=== PATIENT | female | born 1970 | race Two or more races ===

== ENCOUNTER 2018-08-31 06:31 | Day surgery (SDC) | payer OTHER ==
[2018-08-31] VITALS (12 sets, daily range): BP systolic 109–134; BP diastolic 63–75; PULSE 58–72; RESP 15–24; Ht 167.6 cm; Wt 69.1 kg
[~2018-08-31] VITALS: Ht 167.6 cm; Wt 69.1 kg
[2018-08-31] MEDS ORDERED: SEVOFLURANE 15 MIN ONE (07:00)
[2018-08-31] MEDS ORDERED: SOD CHLORIDE 0.9% 1,000 ML IV SCH (07:00)
[2018-08-31] MEDS ORDERED: CEFAZOLIN 1 GM INJ ONE (07:00)
[2018-08-31] MEDS ORDERED: CEFAZOLIN 2 GM/50 ML (PMX) 50 ML IVPB ONE (07:00)
[2018-08-31] MEDS ORDERED: LEVO88TA3 PO (09:38)
[2018-08-31] MEDS ORDERED: BUPIVACAINE 0.25% (MPF) 30 ML INJ ONE (11:31)
[2018-08-31] MEDS ORDERED: ISOSULFAN BLUE 1% 5 ML INJ SC ONE (11:42)
--- NOTE | 2018-08-31 11:50 | PREAC ---
Date/Time of Note Date/Time of Note DATE: 08/31/18 TIME: 11:48 Anesthesia Eval and Record Evaluation Time Pre-Procedure Interview DATE: 08/31/18 TIME: 11:48 Age 48 Sex female NPO: 8 hrs Preoperative diagnosis left breast cancer Planned procedure left needle localized partial mastectomy Past Medical History Past Medical History: Includes Endo: Hypothyroid Surgery & Anesthesia Issues No known issue Meds Anticoagulation: No Beta Kristi within 24 hr: No Reason Beta Kristi not given: Pt. not on B-Kristi Reported Medications Levothyroxine Sodium* (Levothyroxine Sodium*) 88 Mcg Tablet, 88 MCG PO BEFORE BREAKFAST, #30 TAB 08/31/18 Current Medications Sodium Chloride 1,000 ml @ 75 mls/hr [id number] IV Last administered on 08/31/18at 11:20; Admin Dose 75 MLS/HR; Start 08/31/18 at 07:00; Stop 08/31/18 at 20:19 Meds reviewed: Yes Allergies Coded Allergies: No Known Drug Allergies (Verified Allergy, Unknown, 08/31/18) Allergies Reviewed: Yes Labs/Studies Labs Reviewed: Reviewed by anesthesiologist test: Negative Studies: ECG Pre-procedure Exam Last vitals Vital Signs Date Temp Pulse Resp B/P (MAP) Pulse Ox O2 O2 Flow FiO2 Time Delivery Rate 08/31/18 97.6 69 16 134/75 100 Room Air 09:10 (94) Airway: Adequate mouth opening, Adequate thyromental dist Mallampati: Mallampati II Teeth: Normal Lung: Normal Heart: Normal ASA Physical Status ASA physical status: 2 Emergency: None Planned Anesthetic General/MAC: LMA Planned Pain Management Parenteral pain med Pre-operative Attestations Prior to commencing anesthesia and surgery, the patient was re-evaluated, there was verification of: *The patient's identity *The results of appropriate recent lab work and preoperative vital signs *The above evaluation not changing prior to induction *Anesthetic plan, risk benefits, alternative and complications discussed with patient/family; questions answered; patient/family understands, accepts and wishes to proceed. Cane Furniture Maker used CROW COLON MD Aug 31, 2018 11:50
[2018-08-31] MEDS ORDERED: ONDANSETRON 4 MG INJ IV PRN (12:00)
[2018-08-31] MEDS ORDERED: LABETALOL HCL 20MG INJ IV PRN (12:00)
[2018-08-31] MEDS ORDERED: FENTAnyl 50 MCG/ML VIAL IV PRN ×3 (12:00)
[2018-08-31] MEDS ORDERED: hydrALAzine 20 MG INJ IV PRN (12:00)
[2018-08-31] MEDS ORDERED: MEPERIDINE 25 MG INJ IV PRN (12:00)
[2018-08-31] MEDS ORDERED: DIPHENHYDRAMINE 50 MG INJ IV PRN (12:00)
[2018-08-31] MEDS ORDERED: EPHEDrine SULFATE 50 MG/5 ML SYG IV PRN (12:00)
[2018-08-31] MEDS ORDERED: HYDROmorphONE 1 MG/5 ML IV SYRINGE IV PRN ×3 (12:00)
[2018-08-31] MEDS ORDERED: PROCHLORPERAZINE 10 MG INJ IV PRN (12:00)
[2018-08-31] MEDS ORDERED: FENTAnyl 50 MCG/ML VIAL ONE (12:02)
[2018-08-31] MEDS ORDERED: MIDAZOLAM 1 MG/ML 2 ML INJ ONE (12:02)
[2018-08-31] MEDS ORDERED: LIDOCAINE 2% (SDV) 5 ML INJ ONE (12:04)
[2018-08-31] MEDS ORDERED: PROPOFOL 20 ML ONE (12:04)
[2018-08-31] MEDS ORDERED: ONDANSETRON 4 MG INJ ONE (12:19)
[2018-08-31] MEDS ORDERED: DEXAMETHASONE 4 MG/ML 5 ML INJ ONE (12:20)
[2018-08-31] MEDS ORDERED: FAMOTIDINE 20 MG INJ ONE (12:22)
--- NOTE | 2018-08-31 12:59 | OPR ---
Date/Time of Note Date/Time of Note DATE: 08/31/18 TIME: 12:55 Operative Report Procedure Date: Aug 31, 2018 Preoperative Diagnosis left breast sclerosing adenoma Postoperative Diagnosis same Operation/Procedure Performed 1. left needle localized partial mastectomy 5 cm tumor 5 cm incision 2. localized adjacent tissue transfer with the use of skin flaps 10 sq cm defect of left breast 3. 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 She was recommended at that time to undergo excisional biopsy with a needle localized partial mastectomy. Patient had not been compliant and presented to the office recently for surgery. She finally agreed to surgery and presents today for excisional biopsy. She will undergo a left needle localized breast partial mastectomy. Risks alternatives benefits and percent were discussed the patient. In particular potential complications including but not limited to bleeding infection wound dehiscence and potential malignant degeneration were discussed with the patient and family members. They expressed understanding and consents to the operation. Procedure Description Patient is taken to the OR and prepped and draped in usual sterile fashion. Surgical time was performed. IV antibiotics given.Radiographic imaging is reviewed prior to making incision. Radial incision was made in the left inner lower aspect of the breast. Following the needle localization cautery taken onto the area of concern and generous margins were taken and the area is excised with cautery. Surgical markings of double long anterior single short superior single long medial were used for surgical markings. The specimen was sent for radiographic review. Hemostasis established in the surgical site. Due to large tissue defect localized adjacent to his transfer with these of skin flaps were performed. Multilayer closure with interrupted 3-0 Vicryl and running 4-0 Monocryl. Therapeutic contains local anesthesia was injected at the incision site. Steri-Strips and dry dressings were applied. Nora ESTRELLA Aug 31, 2018 12:59
[2018-08-31] MEDS ORDERED: HYDROCODONE/APAP (5/325) TAB PO ONE (13:00)
[2018-08-31] MEDS ORDERED: EPHEDrine 50 MG INJ ONE (13:00)
--- NOTE | 2018-08-31 13:16 | PAC ---
Date/Time of Note Date/Time of Note DATE: 08/31/18 TIME: 13:15 Post-Anesthesia Notes Post-Anesthesia Note Last documented vital signs Vital Signs Date Temp Pulse Resp B/P (MAP) Pulse Ox O2 O2 Flow FiO2 Time Delivery Rate 08/31/18 97.6 69 16 134/75 100 Room Air 09:10 (94) Activity: WNL Respiratory function: WNL Cardiovascular function: WNL Mental status: Baseline Pain reasonably controlled: Yes Hydration appropriate: Yes Nausea/Vomiting absent: Yes Comments BP: 115/68 HR: 69 RR: 15 T: 97.4 SaO2: 100% CROW COLON MD Aug 31, 2018 13:16
== END 2018-08-31 14:38 | disposition home or self-care (01) ==
LOC: SDS 06:31 → EDSEX 06:31 → SDS 14:38
PROVIDERS: ATTEND Surgery
DX: N60.22 Fibroadenosis of left breast (principal); E03.9 Hypothyroidism, unspecified
CPT/HCPCS: 14000; 19120; 84703; 88307; J0690; J1100; J2250; J2405; J3010; Z7512; Z7610; Q9968